=== PATIENT | female | born 1985 | race Two or more races ===

== ENCOUNTER 2018-05-31 21:43 | Emergency (ER) | payer MEDICAID ==
[~2018-05-31] VITALS: Ht 170.2 cm; Wt 115.7 kg
[2018-05-31 22:00] VITALS: BP 136/88
[2018-05-31 23:20] LABS: Urine Bacteria NONE SEEN /hpf (None Seen); Urine Blood 1+ /uL (Negative); Urine Mucus FEW (None Seen); Urine Specific Gravity 1.026 (1.001-1.035); Urine WBC 3 /hpf (0 - 5)
[2018-06-01] MEDS ORDERED: NITROFURANTOIN (MONO) 100 mg CAP PO ONE (00:45)
[2018-06-01] MEDS ORDERED: IPRATROPIUM BROM 0.5 MG/2.5ML INH SOL NEB ONE (00:45)
[2018-06-01] MEDS ORDERED: ALBUTEROL SULF 2.5 MG/0.5ML(0.5%) NEB SOLN NEB ONE (00:45)
[2018-06-01] MEDS ORDERED: PHENAZOPYRIDINE HCL 100 MG TAB PO ONE (00:45)
[2018-06-01] MEDS ORDERED: ACETAMINOPHEN 325 MG TAB PO ONE (01:15)
== END 2018-06-01 01:28 | disposition home or self-care (01) ==
LOC: ER 21:43
DX: O23.41 Unspecified infection of urinary tract in pregnancy, first trimester (principal); O99.511 Diseases of the respiratory system complicating pregnancy, first trimester; J45.909 Unspecified asthma, uncomplicated; Z88.0 Allergy status to penicillin; Z3A.08 8 weeks gestation of pregnancy
CPT/HCPCS: 36415; 81001; 84702; 94640; 99284; J7611; J7644